=== PATIENT | female | born 1950 | race Caucasian/White ===

== ENCOUNTER → 2023-05-12 06:46 | Outpatient (REF) | payer MEDICARE, OTHER, SELFPAY ==
[2023-05-12 09:38] LABS: % Basophils 1.3 % (0-2); % Eosinophils 3.3 % (0-6); % Lymphocytes 36.7 % (20.5-51.1); % Monocytes 11.7 % (1.7-9.3); Absolute Basophils 0.1 10^3/uL (0-0.2); Absolute Eosinophils 0.2 10^3/uL (0-0.7); Absolute Monocytes 0.6 10^3/uL (0.1-0.6); Absolute Neutrophils 2.6 10^3/uL (1.4-6.5); Hematocrit 38.5 % (37.0-47.0); Hemoglobin 12.8 g/dL (12.0-16.0); Mean Corp Hgb Conc. 33.2 g/dL (33.0-37.0); Mean Corpuscular Hgb 31.3 pg (27.0-31.0); Mean Corpuscular Volume 94.1 fL (81.0-99.0); Mean Platelet Volume 10.7 fL (7.4-10.4); Nucleated Red Blood Cells % 0 %; Platelet Count 309 10^3/uL (130-400); Red Blood Cell Count 4.09 10^6/uL (4.20-5.40); Red Cell Dist. Width 13.7 % (11.5-14.5); White Blood Cell Count 5.5 10^3/uL (4.8-10.8)
[2023-05-12 09:43] LABS: ALT (SGPT) 24 U/L (0-35); AST (SGOT) 24 U/L (14-36); Albumin 3.7 g/dl (3.5-5.0); Alkaline Phosphatase 59 U/L (38-126); Blood Urea Nitrogen 12 mg/dl (7-17); Calcium 9.4 mg/dl (8.4-10.2); Carbon Dioxide 28 mmol/L (22-30); Chloride 100 mmol/L (98-107); Glucose 91 mg/dl (70-99); Potassium 4.4 mmol/L (3.5-5.1); Sodium 135 mmol/L (135-145); Total Bilirubin 0.8 mg/dl (0.2-1.3); Total Protein 6.4 g/dl (6.3-8.2); eGFR > 60.00
[2023-05-12 10:07] LABS: Erythrocyte Sed Rate 26 mm/hour (0-20)
== END ==
LOC: HWLAB 06:46
PROVIDERS: ATTENDING PHYSICIAN Internal Medicine Rheumatology; FAMILY PHYSICIAN Nurse Practitioner Adult Health
DX: M06.89 Other specified rheumatoid arthritis, multiple sites (principal); Z51.81 Encounter for therapeutic drug level monitoring
CPT/HCPCS: 36415; 80053; 85025; 85652; 86140

== ENCOUNTER → 2023-06-18 06:44 | Outpatient (REF) | payer MEDICARE, OTHER, SELFPAY ==
[2023-06-18 09:45] LABS: ALT (SGPT) 24 U/L (0-35); AST (SGOT) 19 U/L (14-36); Albumin 3.8 g/dl (3.5-5.0); Alkaline Phosphatase 70 U/L (38-126); Blood Urea Nitrogen 25 mg/dl (7-17); Calcium 8.8 mg/dl (8.4-10.2); Carbon Dioxide 27 mmol/L (22-30); Chloride 103 mmol/L (98-107); Glucose 102 mg/dl (70-99); HDL Cholesterol 78 mg/dl; LDL Cholesterol, Calculated 71 mg/dl; Potassium 4.3 mmol/L (3.5-5.1); Sodium 138 mmol/L (135-145); Total Bilirubin 0.6 mg/dl (0.2-1.3); Total Cholesterol 161 mg/dl (50-199); Total Protein 6.5 g/dl (6.3-8.2); Triglyceride 64 mg/dl (10-149); Very Low Density Lipoprotein 12 mg/dl (0-30); eGFR > 60.00
[2023-06-18 09:49] LABS: Glycohemoglobin (HgbA1c) 5.7 % (4.0-5.6)
== END ==
LOC: HWLAB 06:44
PROVIDERS: ATTENDING PHYSICIAN Nurse Practitioner Adult Health
DX: E78.00 Pure hypercholesterolemia, unspecified (principal); R73.09 Other abnormal glucose
CPT/HCPCS: 36415; 80053; 80061; 83036

== ENCOUNTER → 2023-06-26 07:00 | Outpatient (REF) | payer MEDICARE, OTHER, SELFPAY | LOC: HWWDC 07:00 | PROVIDERS: ATTENDING PHYSICIAN Nurse Practitioner Adult Health | DX: Z12.31 Encounter for screening mammogram for malignant neoplasm of breast (principal) | CPT/HCPCS: 77063; 77067 ==

== ENCOUNTER → 2023-08-07 12:03 | Outpatient (REF) | payer MEDICARE, OTHER, SELFPAY | LOC: HWRAD 12:03 | PROVIDERS: ATTENDING PHYSICIAN Nurse Practitioner Adult Health | DX: M54.12 Radiculopathy, cervical region (principal); M25.512 Pain in left shoulder; M89.8X1 Other specified disorders of bone, shoulder | CPT/HCPCS: 72050; 73030 ==

== ENCOUNTER → 2023-08-19 06:19 | Outpatient (REF) | payer MEDICARE, OTHER, SELFPAY ==
[2023-08-19 09:17] LABS: % Basophils 1.1 % (0-2); % Immature Granulocytes 0.2 % (0-0.5); % Lymphocytes 36.1 % (20.5-51.1); % Monocytes 11.1 % (1.7-9.3); % Neutrophils 48.5 % (42.2-75.2); Absolute Basophils 0.1 10^3/uL (0-0.2); Absolute Eosinophils 0.2 10^3/uL (0-0.7); Absolute Lymphocytes 2.3 10^3/uL (1.2-3.4); Absolute Monocytes 0.7 10^3/uL (0.1-0.6); Absolute Neutrophils 3.1 10^3/uL (1.4-6.5); Hematocrit 37.9 % (37.0-47.0); Hemoglobin 12.6 g/dL (12.0-16.0); Mean Corp Hgb Conc. 33.2 g/dL (33.0-37.0); Mean Corpuscular Hgb 31.3 pg (27.0-31.0); Nucleated Red Blood Cells % 0 %; Platelet Count 306 10^3/uL (130-400); Red Blood Cell Count 4.03 10^6/uL (4.20-5.40); White Blood Cell Count 6.3 10^3/uL (4.8-10.8)
[2023-08-19 09:22] LABS: Erythrocyte Sed Rate 23 mm/hour (0-20)
[2023-08-19 09:29] LABS: ALT (SGPT) 27 U/L (0-35); AST (SGOT) 25 U/L (14-36); Albumin 3.8 g/dl (3.5-5.0); Alkaline Phosphatase 65 U/L (38-126); Blood Urea Nitrogen 12 mg/dl (7-17); Calcium 9.2 mg/dl (8.4-10.2); Carbon Dioxide 27 mmol/L (22-30); Chloride 105 mmol/L (98-107); Glucose 90 mg/dl (70-99); Potassium 4.2 mmol/L (3.5-5.1); Sodium 139 mmol/L (135-145); Total Bilirubin 0.8 mg/dl (0.2-1.3); Total Protein 6.5 g/dl (6.3-8.2); eGFR > 60.00
[2023-08-19 09:31] LABS: C-Reactive Protein < 5.00 mg/L (0.0-10.00)
== END ==
LOC: HWLAB 06:19
PROVIDERS: ATTENDING PHYSICIAN Internal Medicine Rheumatology; FAMILY PHYSICIAN Nurse Practitioner Adult Health
DX: M06.89 Other specified rheumatoid arthritis, multiple sites (principal); M70.61 Trochanteric bursitis, right hip; M81.0 Age-related osteoporosis without current pathological fracture; Z51.81 Encounter for therapeutic drug level monitoring
CPT/HCPCS: 36415; 80053; 85025; 85652; 86140

== ENCOUNTER → 2023-09-11 09:03 | Outpatient (REF) | payer MEDICARE, OTHER, SELFPAY | LOC: HWRCS 09:03 | PROVIDERS: ATTENDING PHYSICIAN Internal Medicine Cardiovascular Disease; FAMILY PHYSICIAN Nurse Practitioner Adult Health | DX: I34.0 Nonrheumatic mitral (valve) insufficiency (principal); I49.3 Ventricular premature depolarization; I35.0 Nonrheumatic aortic (valve) stenosis; Q24.8 Other specified congenital malformations of heart | CPT/HCPCS: 93306 ==

== ENCOUNTER → 2023-10-09 06:32 | Day surgery (SDC) | payer MEDICARE, OTHER, SELFPAY | LOC: GI 06:32 | PROVIDERS: ATTENDING PHYSICIAN Internal Medicine | DX: Z12.11 Encounter for screening for malignant neoplasm of colon (principal); K63.5 Polyp of colon; K57.30 Diverticulosis of large intestine without perforation or abscess without bleeding; K58.9 Irritable bowel syndrome, unspecified; K64.8 Other hemorrhoids | CPT/HCPCS: 45385; 45380; 88305 ==

== ENCOUNTER → 2023-11-19 08:36 | Outpatient (REF) | payer MEDICARE, OTHER, SELFPAY ==
[2023-11-19 09:45] LABS: % Basophils 0.9 % (0-2); % Eosinophils 2.2 % (0-6); % Immature Granulocytes 0.1 % (0-0.5); % Lymphocytes 32.7 % (20.5-51.1); % Monocytes 11.3 % (1.7-9.3); % Neutrophils 52.8 % (42.2-75.2); Absolute Basophils 0.1 10^3/uL (0-0.2); Absolute Eosinophils 0.2 10^3/uL (0-0.7); Absolute Lymphocytes 2.3 10^3/uL (1.2-3.4); Absolute Monocytes 0.8 10^3/uL (0.1-0.6); Absolute Neutrophils 3.7 10^3/uL (1.4-6.5); Hematocrit 36.3 % (37.0-47.0); Hemoglobin 12.2 g/dL (12.0-16.0); Mean Corp Hgb Conc. 33.6 g/dL (33.0-37.0); Mean Corpuscular Hgb 32.5 pg (27.0-31.0); Mean Corpuscular Volume 96.8 fL (81.0-99.0); Mean Platelet Volume 10.2 fL (7.4-10.4); Nucleated Red Blood Cells % 0 %; Platelet Count 274 10^3/uL (130-400); Red Blood Cell Count 3.75 10^6/uL (4.20-5.40); Red Cell Dist. Width 13.7 % (11.5-14.5); White Blood Cell Count 6.9 10^3/uL (4.8-10.8)
[2023-11-19 11:01] LABS: C-Reactive Protein < 5.00 mg/L (0.0-10.00)
[2023-11-19 11:18] LABS: ALT (SGPT) 28 U/L (0-35); AST (SGOT) 23 U/L (14-36); Alkaline Phosphatase 64 U/L (38-126); Blood Urea Nitrogen 18 mg/dl (7-17); Calcium 9.1 mg/dl (8.4-10.2); Carbon Dioxide 27 mmol/L (22-30); Chloride 102 mmol/L (98-107); Glucose 90 mg/dl (70-99); Potassium 4.2 mmol/L (3.5-5.1); Sodium 137 mmol/L (135-145); Total Bilirubin 0.9 mg/dl (0.2-1.3); Total Protein 6.4 g/dl (6.3-8.2); eGFR > 60.00
[2023-11-19 12:23] LABS: Erythrocyte Sed Rate 32 mm/hour (0-20)
== END ==
LOC: HWRAD 08:36
PROVIDERS: ATTENDING PHYSICIAN Internal Medicine Rheumatology; FAMILY PHYSICIAN Nurse Practitioner Adult Health
DX: M81.0 Age-related osteoporosis without current pathological fracture (principal); Z13.820 Encounter for screening for osteoporosis; M06.89 Other specified rheumatoid arthritis, multiple sites; M19.012 Primary osteoarthritis, left shoulder; M46.1 Sacroiliitis, not elsewhere classified; M70.61 Trochanteric bursitis, right hip; Z51.81 Encounter for therapeutic drug level monitoring
CPT/HCPCS: 36415; 77080; 80053; 85025; 85652; 86140

== ENCOUNTER → 2023-12-12 06:27 | Outpatient (REF) | payer MEDICARE, OTHER, SELFPAY | LOC: HWRAD 06:27 | PROVIDERS: ATTENDING PHYSICIAN Internal Medicine Rheumatology; FAMILY PHYSICIAN Nurse Practitioner Adult Health | DX: M16.11 Unilateral primary osteoarthritis, right hip (principal); M70.61 Trochanteric bursitis, right hip | CPT/HCPCS: 73523 ==

== ENCOUNTER → 2024-02-04 06:52 | Outpatient (REF) | payer MEDICARE, OTHER, SELFPAY ==
[2024-02-04 09:36] LABS: % Basophils 0.8 % (0-2); % Eosinophils 1.1 % (0-6); % Immature Granulocytes 0.5 % (0-0.5); % Lymphocytes 42.2 % (20.5-51.1); % Monocytes 8.5 % (1.7-9.3); % Neutrophils 46.9 % (42.2-75.2); Absolute Basophils 0.1 10^3/uL (0-0.2); Absolute Eosinophils 0.1 10^3/uL (0-0.7); Absolute Lymphocytes 3.6 10^3/uL (1.2-3.4); Absolute Monocytes 0.7 10^3/uL (0.1-0.6); Hematocrit 37.2 % (37.0-47.0); Hemoglobin 12.3 g/dL (12.0-16.0); Mean Corp Hgb Conc. 33.1 g/dL (33.0-37.0); Mean Corpuscular Hgb 30.9 pg (27.0-31.0); Mean Corpuscular Volume 93.5 fL (81.0-99.0); Mean Platelet Volume 9.8 fL (7.4-10.4); Nucleated Red Blood Cells % 0 %; Platelet Count 328 10^3/uL (130-400); Red Blood Cell Count 3.98 10^6/uL (4.20-5.40); Red Cell Dist. Width 13.8 % (11.5-14.5); White Blood Cell Count 8.6 10^3/uL (4.8-10.8)
[2024-02-04 09:54] LABS: ALT (SGPT) 26 U/L (0-35); AST (SGOT) 18 U/L (14-36); Albumin 3.9 g/dl (3.5-5.0); Alkaline Phosphatase 54 U/L (38-126); Blood Urea Nitrogen 19 mg/dl (7-17); Calcium 9.2 mg/dl (8.4-10.2); Carbon Dioxide 30 mmol/L (22-30); Chloride 103 mmol/L (98-107); Glucose 89 mg/dl (70-99); HDL Cholesterol 84 mg/dl; LDL Cholesterol, Calculated 69 mg/dl; Potassium 4.2 mmol/L (3.5-5.1); Sodium 142 mmol/L (135-145); Total Bilirubin 0.6 mg/dl (0.2-1.3); Total Cholesterol 177 mg/dl (50-199); Total Protein 6.3 g/dl (6.3-8.2); Triglyceride 120 mg/dl (10-149); Very Low Density Lipoprotein 24 mg/dl (0-30); eGFR > 60.00
[2024-02-04 10:12] LABS: Erythrocyte Sed Rate 22 mm/hour (0-20)
[2024-02-04 10:52] LABS: Glycohemoglobin (HgbA1c) 5.8 % (4.0-5.6)
[2024-02-04 11:38] LABS: C-Reactive Protein < 5.00 mg/L (0.0-10.00)
[2024-02-04 11:57] LABS: Vitamin D, 25-OH*** 43.6 ng/mL (30-80)
[2024-02-04 12:11] LABS: TSH Reflex To Free T4 1.98 uIU/ml (0.47-4.68)
== END ==
LOC: HWLAB 06:52
PROVIDERS: ATTENDING PHYSICIAN Internal Medicine Rheumatology; FAMILY PHYSICIAN Nurse Practitioner Adult Health
DX: M06.89 Other specified rheumatoid arthritis, multiple sites (principal); M19.012 Primary osteoarthritis, left shoulder; M46.1 Sacroiliitis, not elsewhere classified; M70.61 Trochanteric bursitis, right hip; M81.0 Age-related osteoporosis without current pathological fracture; Z51.81 Encounter for therapeutic drug level monitoring; R73.09 Other abnormal glucose; I35.0 Nonrheumatic aortic (valve) stenosis; Z87.898 Personal history of other specified conditions; E78.00 Pure hypercholesterolemia, unspecified
CPT/HCPCS: 36415; 80053; 80061; 82306; 83036; 84443; 85025; 85652; 86140

== ENCOUNTER → 2024-02-06 09:05 | Outpatient (REF) | payer MEDICARE, OTHER, SELFPAY ==
[2024-02-06 12:49] LABS: Urine Albumin Negative (Neg - Trace); Urine Bilirubin Negative (Negative); Urine Character Clear (Clear); Urine Color Yellow; Urine Glucose Negative (Negative); Urine Ketone Negative (Negative); Urine Leukocyte Trace (Negative); Urine Nitrite Negative (Negative); Urine Occult Blood Negative (Negative); Urine Urobilinogen Negative (Neg - 1+)
[2024-02-06 13:14] LABS: Urine Bacteria Few (Negative); Urine Red Blood Cell 0-2 /HPF (0-2); Urine White Cell 0-2 /HPF (0-5)
== END ==
LOC: HWLAB 09:05
PROVIDERS: ATTENDING PHYSICIAN Internal Medicine Rheumatology; FAMILY PHYSICIAN Nurse Practitioner Adult Health
DX: M06.89 Other specified rheumatoid arthritis, multiple sites (principal); M16.11 Unilateral primary osteoarthritis, right hip; M19.012 Primary osteoarthritis, left shoulder; M46.1 Sacroiliitis, not elsewhere classified; M70.61 Trochanteric bursitis, right hip; M81.0 Age-related osteoporosis without current pathological fracture; Z51.81 Encounter for therapeutic drug level monitoring
CPT/HCPCS: 81003; 81015

== ENCOUNTER → 2024-03-03 11:49 | Outpatient (REF) | payer MEDICARE, OTHER, SELFPAY | LOC: HWRAD 11:49 | PROVIDERS: ATTENDING PHYSICIAN Internal Medicine Rheumatology; FAMILY PHYSICIAN Nurse Practitioner Adult Health; REFERRING PHYSICIAN Specialist | DX: M16.11 Unilateral primary osteoarthritis, right hip (principal); M46.1 Sacroiliitis, not elsewhere classified; M47.26 Other spondylosis with radiculopathy, lumbar region; M53.3 Sacrococcygeal disorders, not elsewhere classified | CPT/HCPCS: 72110 ==

== ENCOUNTER → 2024-03-09 06:54 | Outpatient (REF) | payer MEDICARE, OTHER, SELFPAY ==
[2024-03-09 10:13] LABS: Blood Urea Nitrogen 24 mg/dl (7-17); Calcium 9.3 mg/dl (8.4-10.2); Carbon Dioxide 22 mmol/L (22-30); Chloride 101 mmol/L (98-107); Glucose 117 mg/dl (70-99); Sodium 133 mmol/L (135-145); eGFR > 60.00
== END ==
LOC: HWLAB 06:54
PROVIDERS: ATTENDING PHYSICIAN Nurse Practitioner Adult Health
DX: R60.0 Localized edema (principal)
CPT/HCPCS: 36415; 80048

== ENCOUNTER → 2024-03-17 11:07 | Outpatient (REF) | payer MEDICARE, OTHER, SELFPAY | LOC: HWRAD 11:07 | PROVIDERS: ATTENDING PHYSICIAN Specialist; FAMILY PHYSICIAN Nurse Practitioner Adult Health; REFERRING PHYSICIAN Internal Medicine Rheumatology | DX: M54.16 Radiculopathy, lumbar region (principal) | CPT/HCPCS: 72131 ==

== ENCOUNTER → 2024-04-23 13:24 | Outpatient (REF) | payer MEDICARE, OTHER, SELFPAY ==
[2024-04-23 15:33] LABS: % Basophils 0.9 % (0-2); % Eosinophils 1.3 % (0-6); % Immature Granulocytes 0.3 % (0-0.5); % Lymphocytes 26.8 % (20.5-51.1); % Monocytes 10.5 % (1.7-9.3); % Neutrophils 60.2 % (42.2-75.2); Absolute Basophils 0.1 10^3/uL (0-0.2); Absolute Eosinophils 0.1 10^3/uL (0-0.7); Absolute Monocytes 0.8 10^3/uL (0.1-0.6); Absolute Neutrophils 4.6 10^3/uL (1.4-6.5); Hematocrit 36.4 % (37.0-47.0); Hemoglobin 12.1 g/dL (12.0-16.0); Mean Corp Hgb Conc. 33.2 g/dL (33.0-37.0); Mean Corpuscular Hgb 32.1 pg (27.0-31.0); Mean Corpuscular Volume 96.6 fL (81.0-99.0); Nucleated Red Blood Cells % 0 %; Platelet Count 411 10^3/uL (130-400); Red Blood Cell Count 3.77 10^6/uL (4.20-5.40); Red Cell Dist. Width 13.9 % (11.5-14.5); White Blood Cell Count 7.6 10^3/uL (4.8-10.8)
[2024-04-23 15:39] LABS: Erythrocyte Sed Rate 59 mm/hour (0-20)
[2024-04-23 15:47] LABS: ALT (SGPT) 22 U/L (0-35); AST (SGOT) 20 U/L (14-36); Albumin 4.2 g/dl (3.5-5.0); Alkaline Phosphatase 62 U/L (38-126); Blood Urea Nitrogen 19 mg/dl (7-17); Calcium 9.2 mg/dl (8.4-10.2); Carbon Dioxide 28 mmol/L (22-30); Chloride 96 mmol/L (98-107); Glucose 83 mg/dl (70-99); Potassium 4.7 mmol/L (3.5-5.1); Sodium 133 mmol/L (135-145); Total Bilirubin 0.4 mg/dl (0.2-1.3); Total Protein 6.7 g/dl (6.3-8.2); eGFR > 60.00
[2024-04-23 16:46] LABS: C-Reactive Protein < 5.00 mg/L (0.0-10.00)
== END ==
LOC: HWLAB 13:24
PROVIDERS: ATTENDING PHYSICIAN Internal Medicine Rheumatology; FAMILY PHYSICIAN Nurse Practitioner Adult Health
DX: M06.89 Other specified rheumatoid arthritis, multiple sites (principal); M16.11 Unilateral primary osteoarthritis, right hip; M19.012 Primary osteoarthritis, left shoulder; M46.1 Sacroiliitis, not elsewhere classified; M70.61 Trochanteric bursitis, right hip; M81.0 Age-related osteoporosis without current pathological fracture; Z51.81 Encounter for therapeutic drug level monitoring
CPT/HCPCS: 36415; 80053; 85025; 85652; 86140

== ENCOUNTER → 2024-05-10 11:14 | Outpatient (REF) | payer MEDICARE, OTHER, SELFPAY ==
[2024-05-10 15:49] LABS: Blood Urea Nitrogen 21 mg/dl (7-17); Calcium 9.9 mg/dl (8.4-10.2); Carbon Dioxide 26 mmol/L (22-30); Chloride 96 mmol/L (98-107); Glucose 96 mg/dl (70-99); Potassium 4.6 mmol/L (3.5-5.1); Sodium 135 mmol/L (135-145); eGFR > 60.00
== END ==
LOC: HWLAB 11:14
PROVIDERS: ATTENDING PHYSICIAN Nurse Practitioner Adult Health; REFERRING PHYSICIAN Internal Medicine Rheumatology
DX: E87.1 Hypo-osmolality and hyponatremia (principal)
CPT/HCPCS: 36415; 80048

== ENCOUNTER → 2024-05-24 13:01 | Outpatient (REF) | payer MEDICARE, OTHER, SELFPAY | LOC: HWRAD 13:01 | PROVIDERS: ATTENDING PHYSICIAN Internal Medicine Cardiovascular Disease; FAMILY PHYSICIAN Nurse Practitioner Adult Health; REFERRING PHYSICIAN Internal Medicine Rheumatology | DX: Q24.8 Other specified congenital malformations of heart (principal); I70.0 Atherosclerosis of aorta; I25.10 Atherosclerotic heart disease of native coronary artery without angina pectoris; I10 Essential (primary) hypertension; I82.493 Acute embolism and thrombosis of other specified deep vein of lower extremity, bilateral | CPT/HCPCS: 93970 ==

== ENCOUNTER → 2024-05-26 09:54 | Outpatient (REF) | payer MEDICARE, OTHER, SELFPAY ==
[2024-05-26 13:13] LABS: Vitamin D, 25-OH*** 60.5 ng/mL (30-80)
[2024-05-26 13:27] LABS: TSH 2.04 uIU/ml (0.47-4.68)
[2024-05-26 14:03] LABS: Folate 11.4 ng/ml (2.76-20)
[2024-05-26 16:21] LABS: Vitamin B12 216 pg/ml (239-931)
== END ==
LOC: HWLAB 09:54
PROVIDERS: ATTENDING PHYSICIAN Internal Medicine Rheumatology; FAMILY PHYSICIAN Nurse Practitioner Adult Health
DX: E55.9 Vitamin D deficiency, unspecified (principal); M06.89 Other specified rheumatoid arthritis, multiple sites; M16.11 Unilateral primary osteoarthritis, right hip; M19.012 Primary osteoarthritis, left shoulder; M46.1 Sacroiliitis, not elsewhere classified; M54.50 Low back pain, unspecified; M70.61 Trochanteric bursitis, right hip; M81.0 Age-related osteoporosis without current pathological fracture; Z51.81 Encounter for therapeutic drug level monitoring; E53.8 Deficiency of other specified B group vitamins; R94.6 Abnormal results of thyroid function studies; I70.0 Atherosclerosis of aorta; I70.90 Unspecified atherosclerosis; R03.0 Elevated blood-pressure reading, without diagnosis of hypertension
CPT/HCPCS: 36415; 82306; 82607; 82746; 84443

== ENCOUNTER → 2024-05-27 10:47 | Outpatient (REF) | payer MEDICARE, OTHER, SELFPAY | LOC: DHSLP 10:47 | PROVIDERS: ATTENDING PHYSICIAN Internal Medicine Cardiovascular Disease; FAMILY PHYSICIAN Nurse Practitioner Adult Health | DX: G47.33 Obstructive sleep apnea (adult) (pediatric) (principal); R09.02 Hypoxemia | CPT/HCPCS: 95806 ==

== ENCOUNTER → 2024-10-15 08:39 | Outpatient (REF) | payer MEDICARE, OTHER, SELFPAY | LOC: WOUND 08:39 | PROVIDERS: ATTENDING PHYSICIAN Surgery; FAMILY PHYSICIAN Family Medicine | DX: L97.212 Non-pressure chronic ulcer of right calf with fat layer exposed (principal); M06.9 Rheumatoid arthritis, unspecified; I70.90 Unspecified atherosclerosis; Z87.891 Personal history of nicotine dependence | CPT/HCPCS: 11042; 99203 ==

== ENCOUNTER → 2024-10-22 09:54 | Outpatient (REF) | payer MEDICARE, OTHER, SELFPAY | LOC: WOUND 09:54 | PROVIDERS: ATTENDING PHYSICIAN Surgery; FAMILY PHYSICIAN Nurse Practitioner Adult Health | DX: L97.212 Non-pressure chronic ulcer of right calf with fat layer exposed (principal); M06.9 Rheumatoid arthritis, unspecified; I70.90 Unspecified atherosclerosis; Z87.891 Personal history of nicotine dependence | CPT/HCPCS: 11042 ==

== ENCOUNTER → 2024-10-29 09:54 | Outpatient (REF) | payer MEDICARE, OTHER, SELFPAY | LOC: WOUND 09:54 | PROVIDERS: ATTENDING PHYSICIAN Surgery; FAMILY PHYSICIAN Nurse Practitioner Adult Health | DX: L97.212 Non-pressure chronic ulcer of right calf with fat layer exposed (principal); M06.9 Rheumatoid arthritis, unspecified; I70.90 Unspecified atherosclerosis; Z87.891 Personal history of nicotine dependence | CPT/HCPCS: 11042 ==

== ENCOUNTER → 2024-11-05 09:47 | Outpatient (REF) | payer MEDICARE, OTHER, SELFPAY | LOC: WOUND 09:47 | PROVIDERS: ATTENDING PHYSICIAN Surgery | DX: L97.212 Non-pressure chronic ulcer of right calf with fat layer exposed (principal); M06.9 Rheumatoid arthritis, unspecified; I70.90 Unspecified atherosclerosis; Z87.891 Personal history of nicotine dependence | CPT/HCPCS: 11042 ==

== ENCOUNTER → 2024-11-12 10:23 | Outpatient (REF) | payer MEDICARE, OTHER, SELFPAY | LOC: WOUND 10:23 | PROVIDERS: ATTENDING PHYSICIAN Surgery; FAMILY PHYSICIAN Nurse Practitioner Adult Health | DX: L97.212 Non-pressure chronic ulcer of right calf with fat layer exposed (principal); M06.9 Rheumatoid arthritis, unspecified; I70.90 Unspecified atherosclerosis; Z87.891 Personal history of nicotine dependence | CPT/HCPCS: 97597 ==

== ENCOUNTER → 2024-11-16 08:27 | Outpatient (REF) | payer MEDICARE, OTHER, SELFPAY ==
[2024-11-16 09:45] LABS: Hematocrit 35.2 % (37.0-47.0); Hemoglobin 11.4 g/dL (12.0-16.0); Mean Corp Hgb Conc. 32.4 g/dL (33.0-37.0); Mean Corpuscular Volume 90.7 fL (81.0-99.0); Nucleated Red Blood Cells % 0 %; Platelet Count 320 10^3/uL (130-400); Red Cell Dist. Width 13.5 % (11.5-14.5)
[2024-11-16 10:13] LABS: C-Reactive Protein < 5.00 mg/L (0.0-10.00)
[2024-11-16 10:14] LABS: ALT (SGPT) 17 U/L (0-35); AST (SGOT) 17 U/L (14-36); Albumin 4.0 g/dl (3.5-5.0); Alkaline Phosphatase 61 U/L (38-126); Blood Urea Nitrogen 16 mg/dl (7-17); Calcium 9.7 mg/dl (8.4-10.2); Carbon Dioxide 29 mmol/L (22-30); Chloride 101 mmol/L (98-107); Glucose 94 mg/dl (70-99); Potassium 4.4 mmol/L (3.5-5.1); Sodium 136 mmol/L (135-145); Total Protein 7.1 g/dl (6.3-8.2); eGFR > 60.00
== END ==
LOC: HWLAB 08:27
PROVIDERS: ATTENDING PHYSICIAN Internal Medicine Rheumatology; FAMILY PHYSICIAN Nurse Practitioner Adult Health
DX: M06.89 Other specified rheumatoid arthritis, multiple sites (principal); M16.11 Unilateral primary osteoarthritis, right hip; M19.012 Primary osteoarthritis, left shoulder; M46.1 Sacroiliitis, not elsewhere classified; M54.50 Low back pain, unspecified; M70.61 Trochanteric bursitis, right hip; M81.0 Age-related osteoporosis without current pathological fracture; Z51.81 Encounter for therapeutic drug level monitoring
CPT/HCPCS: 36415; 80053; 85025; 85652; 86140

== ENCOUNTER → 2024-11-19 09:10 | Outpatient (REF) | payer MEDICARE, OTHER, SELFPAY | LOC: WOUND 09:10 | PROVIDERS: ATTENDING PHYSICIAN Surgery; FAMILY PHYSICIAN Nurse Practitioner Adult Health | DX: L97.212 Non-pressure chronic ulcer of right calf with fat layer exposed (principal); M06.9 Rheumatoid arthritis, unspecified; I70.90 Unspecified atherosclerosis; Z87.891 Personal history of nicotine dependence | CPT/HCPCS: 99212 ==

== ENCOUNTER 2024-11-24 07:16 | Inpatient (IN) | payer MEDICARE, OTHER, SELFPAY ==
--- NOTE | 2024-11-03 13:05 | CM ---
CM left message for orthopedic [place].
--- NOTE | 2024-11-04 14:05 | CM ---
Demographics: Confirmed
Living situation: Lives with who suffers from Parkinson's, is unable to drive
Support Person Post Operatively: and friend
History of
VN: NONE
SNF: None
Outpatient: Plans to use [facility] after two weeks of VN
Has patient purchased required equipment: yes, walker, toilet seat, showerchair, encouraged patient to purschase hip kit
PCP: Active
Pharmacy: [facility]
Post Operative Discharge Plan: Patient for two weeks of [facility] post operatively as patient's cannot drive and daughter works.
[2024-11-08 11:43] LABS: Hematocrit 35.7 % (37.0-47.0); Hemoglobin 11.4 g/dL (12.0-16.0); Mean Corp Hgb Conc. 31.9 g/dL (33.0-37.0); Mean Corpuscular Volume 91.5 fL (81.0-99.0); Platelet Count 243 10^3/uL (130-400); Red Cell Dist. Width 13.6 % (11.5-14.5)
[2024-11-08 12:12] LABS: ALT (SGPT) 16 U/L (0-35); AST (SGOT) 16 U/L (14-36); Albumin 4.0 g/dl (3.5-5.0); Alkaline Phosphatase 66 U/L (38-126); Blood Urea Nitrogen 18 mg/dl (7-17); Calcium 9.0 mg/dl (8.4-10.2); Carbon Dioxide 29 mmol/L (22-30); Chloride 100 mmol/L (98-107); Glucose 92 mg/dl (70-99); Potassium 4.7 mmol/L (3.5-5.1); Sodium 135 mmol/L (135-145); Total Protein 6.9 g/dl (6.3-8.2); eGFR > 60.00
[2024-11-08 13:13] LABS: Glycohemoglobin (HgbA1c) 5.9 % (4.0-5.6)
[2024-11-08 13:35] LABS: Iron 77 ug/dl (37-170)
[2024-11-08 13:44] LABS: Total Iron Binding Capacity 319 ug/dl (265-497)
[2024-11-08 14:07] VITALS: BMI 24.2
[2024-11-08 14:10] LABS: Ferritin 167.0 ng/ml (11.1-264.0)
[2024-11-08 14:24] LABS: Vitamin B12 236 pg/ml (239-931)
[2024-11-10 16:05] VITALS: BMI 24.2
[2024-11-24] VITALS (21 sets, daily range): BP systolic 91–137; BP diastolic 40–87; PULSE 86; O2SAT 100
[2024-11-24] MEDS: TYLENOL 650 MG PO ×4 (08:30→23:15)
[2024-11-24] MEDS: NORMOSOL-R/PLASMALYTE-A 1000 IV ×2 (08:39→16:15)
--- NOTE | 2024-11-24 10:01 | W.PN.ORTHO ---
Today's Communication / Plan
-
d/c when stable
Assessment
.
Dressing:
Clean, dry and intact.
Assessment:
Pain conrtrol-Ultram
Plan
.
Surgery / Date: R LIBERTY Brothers 11/24/24
DVT Prophylaxis: Aspirin
Activity:
Out of bed.
PT/OT
Discharge Plan: Home w/ VN
Vital Signs and Labs
.
Vital Signs and Labs:
Lab Results
11/08/24 10:15
11/08/24 10:15
Temp Pulse Resp BP Pulse Ox
97.7 F 77 18 137/87 100
11/24/24 08:15 11/24/24 08:15 11/24/24 08:15 11/24/24 08:15 11/24/24 08:15
--- NOTE | 2024-11-24 10:24 | W.DS.TRANS ---
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
-
Discharge Instructions:
Discharge Diagnosis/Procedures R LIBERTY Dr. Brothers 11/24/24
Diet As tolerated
Activity With Walker
Driving Restrictions No driving
Bathing Restrictions OK to Shower
Other Services VN,PT,OT
Instructions:
Stand-Alone Forms: Total Hip/Knee Replacement D/C
Changes to Home Medications: Yes
Discharge Medications:
DC Medications w/original date entered in Monitor
denosumab 60 mg/mL subcutaneous syringe (Prolia) 60 mg SC [id number] 11/05/24
duloxetine 30 mg capsule,delayed release 60 mg PO DAILY 11/05/24
metoprolol succinate 25 mg tablet,extended release 24 hr 25 mg PO DAILY 11/05/24
rosuvastatin 40 mg tablet 40 mg PO DAILY 11/05/24
tizanidine 2 mg tablet 2 mg PO Q8H PRN MUSCLE SPASMS 11/05/24
Held on 11/24/24. Instructions: do not take if taking ultram
mupirocin 2 % topical ointment 1 applic topical BID infection prevention #1 tube 11/07/24
dexamethasone 4 mg tablet 4 mg PO BID inflammation #6 tabs 11/08/24
famotidine 20 mg tablet 20 mg PO HS GI prophylaxis #30 tabs 11/08/24
gabapentin 300 mg capsule 300 mg PO HS sleep/pain #10 caps 11/08/24
meloxicam 15 mg tablet 15 mg PO DAILY anti-inflammatory #14 tabs 11/08/24
ondansetron 4 mg disintegrating tablet 4 mg PO Q6H PRN n/v #20 tabs 11/08/24
tramadol 50 mg tablet 50 mg PO Q6H PRN 1 tab moderate pain, 2 if severe #30 tabs 11/08/24
acetaminophen 325 mg tablet (Tylenol) 650 mg (2 x 325 mg) PO QID #1 tab 11/24/24
aspirin 325 mg tablet 325 mg PO DAILY blood clot prevention #1 tab 11/24/24
certolizumab pegol 200 mg/mL subcutaneous syringe kit (Cimzia) See Rx Instructions .Route .COMPLEX 11/24/24
Held on 11/24/24. Instructions: Resume on 12/15/24.
docusate sodium 100 mg capsule (Colace) 100 mg PO BID stool softner #1 cap 11/24/24
magnesium hydroxide 400 mg/5 mL oral suspension (Milk of Magnesia) 30 ml PO HS PRN constipation #1 mL 11/24/24
olmesartan 5 mg tablet 5 mg PO DAILY #0 tabs 11/24/24
sennosides 8.6 mg tablet (Senokot) 17.2 mg (2 x 8.6 mg) PO BID laxative #2 tabs 11/24/24
spironolactone 25 mg tablet 25 mg PO DAILY #0 tabs 11/24/24
Home Medication Changes
tizanidine 2 mg tablet 2 mg PO Q8H PRN MUSCLE SPASMS 11/05/24
Held on 11/24/24. Instructions: do not take if taking ultram
mupirocin 2 % topical ointment 1 applic topical BID infection prevention #1 tube 11/07/24
dexamethasone 4 mg tablet 4 mg PO BID inflammation #6 tabs 11/08/24
famotidine 20 mg tablet 20 mg PO HS GI prophylaxis #30 tabs 11/08/24
gabapentin 300 mg capsule 300 mg PO HS sleep/pain #10 caps 11/08/24
meloxicam 15 mg tablet 15 mg PO DAILY anti-inflammatory #14 tabs 11/08/24
ondansetron 4 mg disintegrating tablet 4 mg PO Q6H PRN n/v #20 tabs 11/08/24
tramadol 50 mg tablet 50 mg PO Q6H PRN 1 tab moderate pain, 2 if severe #30 tabs 11/08/24
acetaminophen 325 mg tablet (Tylenol) 650 mg (2 x 325 mg) PO QID #1 tab 11/24/24
aspirin 325 mg tablet 325 mg PO DAILY blood clot prevention #1 tab 11/24/24
certolizumab pegol 200 mg/mL subcutaneous syringe kit (Cimzia) See Rx Instructions .Route .COMPLEX 11/24/24
Held on 11/24/24. Instructions: Resume on 12/15/24.
docusate sodium 100 mg capsule (Colace) 100 mg PO BID stool softner #1 cap 11/24/24
magnesium hydroxide 400 mg/5 mL oral suspension (Milk of Magnesia) 30 ml PO HS PRN constipation #1 mL 11/24/24
olmesartan 5 mg tablet 5 mg PO DAILY #0 tabs 11/24/24
sennosides 8.6 mg tablet (Senokot) 17.2 mg (2 x 8.6 mg) PO BID laxative #2 tabs 11/24/24
spironolactone 25 mg tablet 25 mg PO DAILY #0 tabs 11/24/24
Pending Results: No
[2024-11-24] MEDS: ULTRAM 50 MG PO (11:03)
--- NOTE | 2024-11-24 16:01 | PTCARENOTE ---
Report given to Osiris on 2S. [facility]
--- NOTE | 2024-11-24 16:15 | PTCARENOTE ---
Pt received from [facility] via bed. Transport was w/o incident. Pt is AAOx3, HRR, Lungs are clear, resp. easy. Pt's Right Hip w/ antibacterial dressing intact, one scant spot of drainage noted. Pt able to wiggle toes to right foot and reports full
sensation from toes to thigh. Pulses wnl. VSS, Pt is Afebrile. Pt instructed on plan of care. Pt verbalized understanding of instructions, call baisn within reach.
[2024-11-24] MEDS: DECADRON 4 MG IV (18:02)
[2024-11-24] MEDS: TORADOL 15 MG IV (18:02)
[2024-11-24] MEDS: ANCEF 5 IV ×2 (18:02→23:15)
[2024-11-24] MEDS: ASPIRIN 325 MG PO (18:02)
[2024-11-24] MEDS: CYMBALTA DELAYED RELEASE 60 MG PO (18:03)
[2024-11-24] MEDS: TYLENOL PO (18:03)
[2024-11-24] MEDS: SENOKOT 17.2 MG PO (19:42)
[2024-11-24] MEDS: COLACE 100 MG PO (19:43)
[2024-11-24] MEDS: NEURONTIN 300 MG PO (21:43)
[2024-11-24] MEDS: BACTROBAN 2% OINTMENT 1 APPLIC NASAL (21:43)
[2024-11-24] MEDS: PEPCID 20 MG PO (21:44)
[2024-11-25 03:03] VITALS: BP 97/62
[2024-11-25] MEDS: TYLENOL 650 MG PO ×3 (04:06→13:09)
[2024-11-25] MEDS: TORADOL 15 MG IV (06:01)
[2024-11-25] MEDS: DECADRON 4 MG IV (06:01)
[2024-11-25 07:15] VITALS: BP 132/71
--- NOTE | 2024-11-25 07:31 | CM ---
CM updated [facility] Admission RN with new referral.
PLAN: Home with [facility].
[2024-11-25] MEDS: ASPIRIN 325 MG PO (09:10)
[2024-11-25] MEDS: CRESTOR 40 MG PO (09:10)
[2024-11-25] MEDS: BENICAR 5 MG PO (09:10)
[2024-11-25] MEDS: TOPROL XL 25 MG PO (09:12)
[2024-11-25] MEDS: MOBIC 15 MG PO (09:12)
[2024-11-25] MEDS: SENOKOT 17.2 MG PO (09:12)
[2024-11-25] MEDS: COLACE 100 MG PO (09:12)
[2024-11-25] MEDS: CYMBALTA DELAYED RELEASE 60 MG PO (09:12)
[2024-11-25] MEDS: BACTROBAN 2% OINTMENT 1 APPLIC NASAL (09:13)
--- NOTE | 2024-11-25 09:36 | VNURNOTE ---
Chart reviewed. Noted in assessment that pt is forgetful. [facility] liaison called patient's spouse Zach. Explained [facility] nurse/therapy, visits, schedule and homebound status. Spouse is agreeable and understands that visits at home will be 2-3 x
per week to assess and teach medical management. He is aware that [facility] will contact them for start of care in 1-2 days after discharge from . Provided contact number for [facility].
PM [facility] referral completed in [facility].
[2024-11-25 10:32] VITALS: BP 120/59; PULSE 77; O2SAT 100
--- NOTE | 2024-11-25 10:59 | W.PN.ORTHO ---
Today's Communication / Plan
-
d/c
Assessment
.
Distal Motor Intact: Yes
Dressing:
Clean, dry and intact.
Assessment:
patient twisted while on toilet and heard click--XR reviewed by radiology and Dr Brothers--with no abnormality nor malalignment--saw patient again and stressed hip precautions with recommendations to her and family member present
Plan
.
Surgery / Date: R LIBERTY Dr Brothers 11/24/24
DVT Prophylaxis: Aspirin
Activity:
Out of bed.
PT/OT
Discharge Plan: Home w/ VN
Subjective
.
.:
Patient resting comfortably.
Vital Signs and Labs
.
Vital Signs and Labs:
Lab Results
11/08/24 10:15
11/08/24 10:15
Temp Pulse Resp BP Pulse Ox
98.5 F 82 16 132/71 97
11/25/24 07:15 11/25/24 07:15 11/25/24 07:15 11/25/24 07:15 11/25/24 07:15
Non-invasive Hgb result: 10.4
Physical Exam
-
HEENT: No pallor, cyanosis, or jaundice. Throat clear.
NECK: Supple. No JVD.
RESPIRATORY: Lungs clear to auscultation.
CVS: S1, S2 normal. RRR.� No murmur, rub or gallop.
ABDOMEN: Soft, non-tender. No distension. BS+/normal.
EXTREMITIES: strength equal, no calf pain with palpation
TECHNOLOGY APPLICATIONS CONSULTANT: AOx3. No focal deficits. 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
[2024-11-25 11:21] VITALS: BP 118/62; PULSE 88; O2SAT 99
[2024-11-25 11:24] VITALS: BP 119/58
--- NOTE | 2024-11-25 11:35 | PTCARENOTE ---
Pt reported to Nurse that after going to the bathroom she turned to throw something away and heard a snap and felt pain in her right operative hip. Orthopedic PA notified and Xray of right hip ordered.
[2024-11-25] MEDS: ULTRAM 50 MG PO (13:10)
== END 2024-11-25 14:37 | disposition home health service (06) | DRG 470 ==
LOC: 2 SOUTH 07:16
PROVIDERS: ADMITTING PHYSICIAN Orthopaedic Surgery; FAMILY PHYSICIAN Nurse Practitioner Adult Health; REFERRING PHYSICIAN Internal Medicine Cardiovascular Disease
PROC: 0SR904A Replacement of Right Hip Joint with Ceramic on Polyethylene Synthetic Substitute, Uncemented, Open Approach (ICD-10-PCS; 2024-11-24)
DX: M16.11 Unilateral primary osteoarthritis, right hip (principal); I49.3 Ventricular premature depolarization; I10 Essential (primary) hypertension; E78.5 Hyperlipidemia, unspecified; I25.10 Atherosclerotic heart disease of native coronary artery without angina pectoris; G47.33 Obstructive sleep apnea (adult) (pediatric); M85.80 Other specified disorders of bone density and structure, unspecified site; F32.A Depression, unspecified; F41.9 Anxiety disorder, unspecified; D64.9 Anemia, unspecified; M06.9 Rheumatoid arthritis, unspecified; Z79.82 Long term (current) use of aspirin; Z63.6 Dependent relative needing care at home; Z87.891 Personal history of nicotine dependence
CPT/HCPCS: 36415; 73502; 80053; 82607; 82728; 83036; 83540; 83550; 85027; 86850; 86900; 86901; 87070; 97110; 97116; 97163; 97167; 97530; 97535; C1776

== ENCOUNTER → 2024-12-08 10:41 | Outpatient (REF) | payer MEDICARE, OTHER, SELFPAY ==
[2024-12-08 16:06] LABS: Urine Character Slightly Cloudy (Clear)
[2024-12-08 16:14] LABS: Urine Squamous Cell 0-2 /LPF (Few); Urine White Cell >100 /HPF (0-5)
== END ==
LOC: HWLAB 10:41
PROVIDERS: ATTENDING PHYSICIAN Nurse Practitioner Adult Health
DX: R32 Unspecified urinary incontinence (principal)
CPT/HCPCS: 81003; 81015; 87077; 87086; 87186

== ENCOUNTER → 2025-01-07 14:54 | Outpatient (REF) | payer MEDICARE, OTHER, SELFPAY | LOC: DHSLP 14:54 | PROVIDERS: ATTENDING PHYSICIAN Internal Medicine Critical Care Medicine; FAMILY PHYSICIAN Nurse Practitioner Adult Health | DX: G47.33 Obstructive sleep apnea (adult) (pediatric) (principal) | CPT/HCPCS: 95811 ==

== ENCOUNTER → 2025-02-01 14:38 | Outpatient (REF) | payer MEDICARE, OTHER, SELFPAY ==
[2025-02-01 16:00] LABS: Urine Character Slightly Cloudy (Clear)
[2025-02-01 16:20] LABS: Urine Squamous Cell 0-2 /LPF (Few)
[2025-02-01 16:21] LABS: Urine White Cell 80-90 /HPF (0-5)
== END ==
LOC: REG 14:38
PROVIDERS: ATTENDING PHYSICIAN Physician Assistant
DX: R35.0 Frequency of micturition (principal)
CPT/HCPCS: 81003; 81015; 87086; 87147

== ENCOUNTER → 2025-02-14 12:28 | Outpatient (REF) | payer MEDICARE, OTHER, SELFPAY ==
[2025-02-14 13:45] LABS: Urine Character Clear (Clear)
[2025-02-14 14:53] LABS: Urine Red Blood Cell 0-2 /HPF (0-2)
== END ==
LOC: REG 12:28
PROVIDERS: ATTENDING PHYSICIAN Physician Assistant; FAMILY PHYSICIAN Nurse Practitioner Adult Health; OTHER PHYSICIAN Orthopaedic Surgery
DX: N39.0 Urinary tract infection, site not specified (principal)
CPT/HCPCS: 81003; 81015; 87086

== ENCOUNTER → 2025-03-01 12:19 | Outpatient (REF) | payer MEDICARE, OTHER, SELFPAY | LOC: REG 12:19 | PROVIDERS: ATTENDING PHYSICIAN Family Medicine | DX: N39.0 Urinary tract infection, site not specified (principal) | CPT/HCPCS: 36415; 87077; 87086; 87186 ==

== ENCOUNTER → 2025-03-09 09:32 | Outpatient (REF) | payer MEDICARE, OTHER, SELFPAY ==
[2025-03-09 11:05] LABS: Hematocrit 34.4 % (37.0-47.0); Hemoglobin 11.4 g/dL (12.0-16.0); Mean Corp Hgb Conc. 33.1 g/dL (33.0-37.0); Mean Corpuscular Volume 85.4 fL (81.0-99.0); Nucleated Red Blood Cells % 0 %; Platelet Count 433 10^3/uL (130-400); Red Cell Dist. Width 13.5 % (11.5-14.5)
[2025-03-09 11:47] LABS: ALT (SGPT) 43 U/L (0-35); AST (SGOT) 27 U/L (14-36); Albumin 4.0 g/dl (3.5-5.0); Alkaline Phosphatase 73 U/L (38-126); Blood Urea Nitrogen 15 mg/dl (7-17); Calcium 9.3 mg/dl (8.4-10.2); Carbon Dioxide 30 mmol/L (22-30); Chloride 99 mmol/L (98-107); Glucose 84 mg/dl (70-99); Potassium 4.3 mmol/L (3.5-5.1); Sodium 135 mmol/L (135-145); Total Protein 7.5 g/dl (6.3-8.2); eGFR > 60.00
[2025-03-09 16:24] LABS: C-Reactive Protein < 5.00 mg/L (0.0-10.00)
== END ==
LOC: REG 09:32
PROVIDERS: ATTENDING PHYSICIAN Internal Medicine Rheumatology; FAMILY PHYSICIAN Nurse Practitioner Adult Health
DX: N39.0 Urinary tract infection, site not specified (principal); M06.89 Other specified rheumatoid arthritis, multiple sites; M16.11 Unilateral primary osteoarthritis, right hip; M19.012 Primary osteoarthritis, left shoulder; M46.1 Sacroiliitis, not elsewhere classified; M54.50 Low back pain, unspecified; M70.61 Trochanteric bursitis, right hip; M81.0 Age-related osteoporosis without current pathological fracture; Z51.81 Encounter for therapeutic drug level monitoring
CPT/HCPCS: 36415; 80053; 85025; 85652; 86140; 87086

== ENCOUNTER → 2025-03-15 06:46 | Outpatient (REF) | payer MEDICARE, OTHER, SELFPAY | LOC: HWWDC 06:46 | PROVIDERS: ATTENDING PHYSICIAN Nurse Practitioner Adult Health | DX: Z12.31 Encounter for screening mammogram for malignant neoplasm of breast (principal) | CPT/HCPCS: 77063; 77067 ==